=== PATIENT | female | born 1965 | race Caucasian/White ===

== ENCOUNTER 2017-04-26 07:05 | Emergency (ER) | payer OTHER ==
[~2017-04-26] VITALS: Ht 157.5 cm; Wt 80.0 kg
[2017-04-26 07:13] VITALS: BP 114/77; PULSE 125; RESP 18; TEMP 97.5
[2017-04-26 07:16] VITALS: BP 114/77; PULSE 125; RESP 16; TEMP 97.5; O2SAT 98
[2017-04-26] MEDS ORDERED: ONDANSETRON ODT 4 MG TAB PO ONE (07:45)
[2017-04-26] MEDS ORDERED: ZOFR4TAB PO (07:49)
--- NOTE | 2017-04-26 07:51 | PD ---
HPI Chief Complaint: Headache Time Seen by Provider: 07:21 Travel History International Travel<30 days: No Contact w/Intl Traveler<30days: No Traveled to known affect area: No History of Present Illness HPI The patient was seen and examined in the presence of the nurse. She complains of nausea and vomiting and diarrhea. She also has general malaise and headache. Duration of symptoms is 10 hours. Her is here as a patient with the exact same symptoms. No alleviating factors. Symptoms severity is moderate. PFSH Past Medical History Medical History: Denies Significant Hx Diminished Hearing: No Immunizations Current: Yes Tetanus Vaccination: Unknown ?: Not Past Surgical History Surgical History: No Previous Surgery Social History Alcohol Use: Yes Tobacco Use: No Substance Use: No Allergies-Medications (Allergen,Severity, Reaction): Coded Allergies: No Known Allergies (Unverified , 04/26/17) Reported Meds & Prescriptions Reported Meds & Active Scripts Active No Active Prescriptions or Reported Medications Review of Systems General / Constitutional: No: Fever Eyes: No: Visual changes HENT: Positive: Headaches, Lightheadedness Cardiovascular: No: Chest Pain or Discomfort Respiratory: No: Shortness of Breath Gastrointestinal: Positive: Nausea, Vomiting, Diarrhea, No: Abdominal Pain Genitourinary: No: Dysuria Musculoskeletal: No: Pain Skin: No Rash Neurologic: No: Weakness Psychiatric: No: Depression Endocrine: No: Polydipsia Hematologic/Lymphatic: No: Easy Bruising Physical Exam Narrative GENERAL: Well-nourished, well-developed patient in no apparent distress. SKIN: Focused skin assessment reveals no rash and nodules. Skin is Warm and dry. HEAD: Atraumatic. Normocephalic. EYES: Pupils equal and round. No scleral icterus. No injection or drainage. ENT: No nasal bleeding or discharge. Mucous membranes pink and moist. NECK: Trachea midline. No JVD. No meningeal signs CARDIOVASCULAR: Regular rate and rhythm. No murmur appreciated. Tachycardic 120 RESPIRATORY: No accessory muscle use. Clear to auscultation. Breath sounds equal bilaterally. GASTROINTESTINAL: Abdomen soft, non-tender, nondistended. Hepatic and splenic margins not palpable. MUSCULOSKELETAL: No obvious deformities. No clubbing. No cyanosis. No edema. NEUROLOGICAL: Awake and alert. No obvious cranial nerve deficits. Motor grossly within normal limits. Normal speech. PSYCHIATRIC: Appropriate mood and affect; insight and judgment normal. Data Data Last Documented VS Vital Signs Date Time Temp Pulse Resp B/P Pulse Ox O2 Delivery O2 Flow Rate FiO2 04/26/17 07:16 97.5 125 16 114/77 98 Orders Ondansetron Odt (Zofran Odt) (04/26/17 07:45) MDM Medical Decision Making Medical Screen Exam Complete: Yes Emergency Medical Condition: Yes Medical Record Reviewed: Yes Differential Diagnosis Gastroenteritis, food poisoning, dehydration, flu syndrome Narrative Course I have reviewed the patient's electronic medical record. Patient's presentation seems most consistent with an acute viral gastroenteritis or food poisoning. Her is here with the same symptoms. I recommended that we place an IV and gave her some IV fluid and do some blood work and give her some nausea medication to start with. Patient refuses all of that. She says she doesn't feel that sick and does not want an IV or any testing. I gave her dose of oral Zofran and a prescription for same I advised her to return if she worsens or changes her mind but she is adamant that she does not want anything done. I discussed that she may be dehydrated and has an elevated heart rate but she wants to go home and think she can drink Gatorade and get better. Diagnosis Primary Impression: Nausea vomiting and diarrhea Referrals: Family Practice Physician call for appointment Patient Instructions: General Instructions Departure Forms: Tests/Procedures Additional Instructions: The patient was advised to follow up with their physician and return if they worsen. I have recommended clear liquids for 24 hours, then gradually advance as tolerated. Med/Other Pt SpecificInfo: Prescription(s) given Scripts Ondansetron (Zofran)4 Mg Tab4 Mg PO Q6HR PRN (NAUSEA OR VOMITING) #12 TAB Ref 0 Prov:Josue Gonsalez MD 04/26/17 Disposition: 01 DISCHARGE HOME Condition: Stable Josue Gonsalez MD Apr 26, 2017 07:51
== END 2017-04-26 07:58 | disposition home or self-care (01) ==
LOC: PHED 07:05
DX: R11.2 Nausea with vomiting, unspecified (principal); R19.7 Diarrhea, unspecified; R53.81 Other malaise; R51 Headache
CPT/HCPCS: 99283